=== PATIENT | female | born 1965 | race Caucasian/White ===

== ENCOUNTER 2017-02-21 16:49 | Emergency (ER) | payer MEDICAID, OTHER ==
[~2017-02-21] VITALS: Ht 157.5 cm; Wt 55.4 kg
[2017-02-21 16:50] VITALS: BP 139/93
== END 2017-02-21 19:37 | disposition home or self-care (01) ==
LOC: ED 17:52
DX: R60.0 Localized edema (principal); Z88.1 Allergy status to other antibiotic agents
CPT/HCPCS: 99284